=== PATIENT | male | born 1995 | race Caucasian/White ===

== ENCOUNTER 2017-12-23 19:22 | Emergency (ER) | payer MEDICAID ==
[2017-12-23 19:55] VITALS: RESP 18
--- NOTE | 2017-12-23 20:06 | ED PDOC ---
Arrival/HPI <Armin Ayala - Last Filed: 12/23/17 22:05> - General Historian: Patient <Andrzej Cotton - Last Filed: 12/24/17 14:33> - General Chief Complaint: Lower Extremity Problem/Injury Time Seen by Provider: 12/23/17 19:31 - History of Present Illness Narrative History of Present Illness (Text): 12/23/17 20:03 22 y/o male, no significant pmh, nkda, c/o rt. ankle pain s/p inversion injury x 2 hours s/p jumped and twisted the rt. ankle. Aching pain, aggravated by walking, able to bear weight, no numbness or tingling, no calf pain, no foot or toe pain, no other medical or psychological complaints. (Andrzej Cotton) Past Medical History - Provider Review Nursing Documentation Reviewed: Yes <Andrzej Cotton - Last Filed: 12/24/17 14:33> Family/Social History - Physician Review Nursing Documentation Reviewed: Yes Family/Social History: Unknown Family HX <Andrzej Cotton - Last Filed: 12/24/17 14:33> Allergies/Home Meds <Armin Ayala - Last Filed: 12/23/17 22:05> <Andrzej Cotton - Last Filed: 12/24/17 14:33> Allergies/Adverse Reactions: Allergies No Known Allergies Allergy (Verified 12/23/17 19:54) Review of Systems - Review of Systems Constitutional: absent: Fatigue, Fevers Eyes: absent: Vision Changes ENT: absent: Hearing Changes Respiratory: absent: SOB, Cough Cardiovascular: absent: Chest Pain Gastrointestinal: absent: Abdominal Pain, Nausea, Vomiting Musculoskeletal: absent: Arthralgias, Back Pain Skin: absent: Rash, Pruritis Neurological: absent: Headache, Dizziness Psychiatric: absent: Anxiety, Depression <Andrzej Cotton - Last Filed: 12/24/17 14:33> Physical Exam Vital Signs Reviewed: Yes Temperature: Afebrile Blood Pressure: Normal Pulse: Regular Respiratory Rate: Normal Appearance: Positive for: Well-Appearing, Non-Toxic, Comfortable Pain Distress: None Mental Status: Positive for: Alert and Oriented X 3 - Systems Exam Head: Present: Atraumatic, Normocephalic Pupils: Present: PERRL Extroacular Muscles: Present: EOMI Conjunctiva: Present: Normal Mouth: Present: Moist Mucous Membranes Neck: Present: Normal Range of Motion Respiratory/Chest: Present: Clear to Auscultation, Good Air Exchange. No: Respiratory Distress, Accessory Muscle Use Cardiovascular: Present: Regular Rate and Rhythm, Normal S1, S2. No: Murmurs Abdomen: No: Tenderness, Distention, Peritoneal Signs Back: Present: Normal Inspection Upper Extremity: Present: Normal Inspection. No: Cyanosis, Edema Lower Extremity: Present: Normal Inspection, Other (Rt. ankle: +ttp on the lateral malleolus region with no swelling, negative granados and campos, no rash , FROM without limitation, sensation intact, motor 5/5, +DPPT pulses. ). No: Edema Neurological: Present: GCS=15, CN II-XII Intact, Speech Normal, Motor Func Grossly Intact, Gait Normal, Memory Normal Skin: Present: Warm, Dry, Normal Color. No: Rashes Psychiatric: Present: Alert, Oriented x 3, Normal Insight, Normal Concentration <Andrzej Cotton - Last Filed: 12/24/17 14:33> Vital Signs Temp Pulse Resp BP Pulse Ox 12/23/17 22:59 98.6 F 85 18 120/61 100 12/23/17 19:50 98.4 F 95 H 18 112/73 99 Medical Decision Making <Armin Ayala - Last Filed: 12/23/17 22:05> - RAD Interpretation Branch Account Manager: Radiologist <Andrzej Cotton - Last Filed: 12/24/17 14:33> ED Course and Treatment: 12/23/17 20:10 -Rt. ankle xray -Motrin -Observe and reassess 12/23/17 21:56 -xray show no fracture or dislocation -Benjamin wrap and crutches applied. -Discharge home with motrin, benjamin wrap, crutches, non-weight bearing, ice compression, follow up with your own pmd and orthopedic within 2 days, return to the ER for any new or worsening signs or symptoms. (Andrzej Cotton) - RAD Interpretation Radiology Orders: 12/23/17 20:06 ANKLE RIGHT 3 VIEWS ROUTINE [RAD] Stat 12/23/17 20:06 ANKLE RIGHT 3 VIEWS ROUTINE [RAD] Stat normal right ankle radiograph (Andrzej Cotton) - Medication Orders Current Medication Orders: Discontinued Medications Ibuprofen (Motrin Tab) 600 mg PO STAT STA Stop: 12/23/17 20:07 Last Admin: 12/23/17 20:37 Dose: 600 mg MAR Pain/Vitals Document 12/23/17 20:37 (Rec: 12/23/17 20:38 [id number]) Pain Reassessment Is This A Pain ReAssessment? No Sleep Is patient sleeping during reassessment? No Presence of Pain Presence of Pain Yes Pain Scale Used Pain Scale Used Numeric Location Intensity 10 Scale Used Numeric - PA / BUSINESS DEVELOPMENT AGENT / Resident Statement / has reviewed & agrees with the documentation as recorded. <Armin Ayala - Last Filed: 12/23/17 22:05> - PA / BUSINESS DEVELOPMENT AGENT / Resident Statement / has reviewed & agrees with the documentation as recorded. <Andrzej Cotton - Last Filed: 12/24/17 14:33> Disposition/Present on Arrival <Armin Ayala - Last Filed: 12/23/17 22:05> - Present on Arrival Any Indicators Present on Arrival: No History of DVT/PE: No History of Uncontrolled Diabetes: No Urinary Catheter: No History of Decub. Ulcer: No History Surgical Site Infection Following: None - Disposition Have Diagnosis and Disposition been Completed?: Yes Disposition Time: 20:11 Patient Plan: Discharge <Andrzej Cotton - Last Filed: 12/24/17 14:33> - Disposition Diagnosis: Ankle injury, Ankle pain Disposition: HOME/ ROUTINE Condition: GOOD Additional Instructions: -Discharge home with motrin, benjamin wrap, crutches, non-weight bearing, ice compression, follow up with your own pmd and orthopedic within 2 days, return to the ER for any new or worsening signs or symptoms. Prescriptions: Ibuprofen [Motrin] 600 mg PO QID PRN #30 tab PRN Reason: Other Referrals: Allyssa Thao, [Primary Care Provider] - Follow up with primary Tommy Arana III, MD [Medical Doctor] - Follow up with primary Forms: WORK NOTE
[2017-12-23 23:02] VITALS: BP 120/61; PULSE 85; TEMP 98.6; O2SAT 100
--- NOTE | 2017-12-24 08:47 | RAD ---
PROCEDURE: Right Ankle Radiographs. HISTORY: rt. ankle inversion injury and pain COMPARISON: None FINDINGS: BONES: Normal. No fracture. JOINTS: Normal. No osteoarthritis. Ankle mortise maintained. Talar dome intact SOFT TISSUES: Normal. OTHER FINDINGS: None. IMPRESSION: Normal right ankle radiographs.
== END 2017-12-23 22:30 | disposition home or self-care (01) ==
LOC: ED 19:22
DX: S99.911A Unspecified injury of right ankle, initial encounter (principal); X50.1XXA Overexertion from prolonged static or awkward postures, initial encounter; Y93.67 Activity, basketball; Y92.39 Other specified sports and athletic area as the place of occurrence of the external cause; M25.571 Pain in right ankle and joints of right foot